=== PATIENT | male | born 1940 | race Caucasian/White ===

== ENCOUNTER 2016-12-08 08:23 | Emergency (ER) | payer OTHER ==
[2016-12-08 08:42] VITALS: BP 129/76; PULSE 78; RESP 18; TEMP 98; O2SAT 97
--- NOTE | 2016-12-08 09:04 | UCPHY ---
H & P Time Seen by Provider: 12/08/16 08:44 Patient Type: Established HPI/ROS: This patient has a skin lesion. 5 days ago he noticed did skin to the handley that then sloughed off. Since then he has had a silver dollar size area of redness and mild discomfort. He is concerned about infection. He reports no other associated symptoms and no exacerbating factors. ROS: Reports no fevers or chills. Has no other skin lesions. There has been no drainage from the lesion. 5 point ROS is otherwise negative. Smoking Status: Never smoked Physical Exam: Physical Exam Vital signs are normal. General: No acute distress Eyes: Pupils equal and react to light. Extraocular motions are intact. Lungs: No respiratory distress. Cardiac: Brisk capillary refill is intact throughout. Pulses are 2+ and symmetric in the affected extremity. Skin: This patient has a superficial ulceration of the skin approximately a 7 mm in size to the right pretibial region surrounded by erythema-3 cm in diameter with slight warmth to touch. There is no drainage. Neuro: Alert with no sensorimotor deficits. Differential diagnosis: Insect bite, minor trauma with superficial wound infection, doubt cancerous lesion Constitutional: Initial Vital Signs Temperature (C) 36.6 C 12/08/16 08:39 Heart Rate 78 12/08/16 08:39 Respiratory Rate 18 12/08/16 08:39 Blood Pressure 129/76 H 12/08/16 08:39 O2 Sat (%) 97 12/08/16 08:39 O2 Delivery Mode Room Air Allergies/Adverse Reactions: Beta-Blockers (Beta-Adrenergic Bloc Allergy (Severe, Verified 07/05/16 16:44) CARDIAC ARREST Home Medications: Medication Instructions Recorded Aspirin [Aspirin 81mg (OTC)] 81 mg PO DAILY 07/18/12 Lisinopril [Zestril 20 mg (RX)] 20 mg PO DAILY 07/18/12 Simvastatin 40 mg PO 07/18/12 Mupirocin Calcium [Bactroban] 15 gm TP BID #15 cream..g. 12/08/16 MDM/Departure - Depart Disposition: Home, Routine, Self-Care Clinical Impression: Cellulitis Qualifiers: Site of cellulitis: other site Qualified Code(s): L03.818 - Cellulitis of other sites Skin ulcer Qualifiers: Non-pressure ulcer stage: limited to breakdown of skin Qualified Code(s): L98.491 - Non-pressure chronic ulcer of skin of other sites limited to breakdown of skin Condition: Good Instructions: Cellulitis (ED) Additional Instructions: Diagnosis: Superficial skin ulceration 2. Cellulitis Plan: Bactroban ointment twice a day Clean the lesion daily Follow up with Dr. Lawson-manager ccu for further evaluation Prescriptions: Mupirocin Calcium [Bactroban] 15 gm TP BID #15 cream..g. Referrals: Supriya Brownlee MD [Primary Care Provider] - As per Instructions ANIYA LAWSON [Medical Doctor] - As per Instructions - PQRS PQRS Measurement: 134: Depression screening and followup, PRIME MD-PHQ2 (12 years and older) Over the last 2 weeks, how often have you been bothered by any of the following problems? 1. Feeling down, depressed, or hopeless? 2. Little interest or pleasure in doing things? [Patient answered no to both 1 and 2] [Patient answered yes to at least 1, referred to PCP for further evaluation.] [Not done because] [altered mental status] [patient refused] [critically ill]. 130: Documentation of medications. [Reviewed all patient medications, doses, route and frequency.] [Unable to obtain meds due to] [critical illness] [altered mental status] [ patient did not know]. 226: Do you smoke? [Yes, counseled to stop.] [No.] 47: 65 and older: Advanced care planning. Patient designates surrogate decision maker as [parent] [spouse] [ ]. [Patient refused.] [Patient has advanced directive.] 51: 18 years old and older with diagnosis of COPD, spirometry performance. [Spirometry not performed; equipment not available.] [Patient has no history of COPD] 52: 18 years old and older with COPD and symptoms of COPD or FEV1<60% predicted prescribed a B Agonist. [Spirometry not performed; equipment not available.]
== END 2016-12-08 13:07 | disposition home or self-care (01) ==
LOC: CED 08:23
DX: L98.491 Non-pressure chronic ulcer of skin of other sites limited to breakdown of skin (principal); L03.818 Cellulitis of other sites
CPT/HCPCS: 99214-PO; G0463-PO

== ENCOUNTER → 2019-01-19 | Outpatient (CLI) | payer OTHER | LOC: BHCLAF 09:30 | PROVIDERS: ATTEND Internal Medicine Cardiovascular Disease | DX: I25.10 Atherosclerotic heart disease of native coronary artery without angina pectoris (principal) | CPT/HCPCS: 93005-PO ==